=== PATIENT | male | born 2000 | race Caucasian/White ===

== ENCOUNTER 2022-02-02 07:33 | Emergency (ER) | payer SELFPAY ==
[2022-02-02 08:00] VITALS: BMI 28.1
[2022-02-02 09:36] VITALS: TEMP 98.8
[2022-02-02 11:44] VITALS: BP 112/58; PULSE 72
== END 2022-02-02 13:46 | disposition home or self-care (01) ==
LOC: FER 07:33
DX: S63.502A Unspecified sprain of left wrist, initial encounter (principal); F19.920 Other psychoactive substance use, unspecified with intoxication, uncomplicated; W01.0XXA Fall on same level from slipping, tripping and stumbling without subsequent striking against object, initial encounter
CPT/HCPCS: 73110-TC-RT-FY; 99281-25